=== PATIENT | female | born 1990 | race Hispanic/Latino ===

== ENCOUNTER 2021-08-26 15:00 | Inpatient (IN) | payer MEDICAID, OTHER ==
[~2021-08-26] VITALS: Ht 160 cm; Wt 70.3 kg
[2021-08-26] MEDS: OXYTOCIN-LR 20 UNITS/1000 ML 1,000 ML IV SCH ×2 (15:24→16:30)
[2021-08-26] MEDS ORDERED: BENZOCAINE/LANOLIN/ALOE VERA 60 ML AEROSOL TP PRN (16:00)
[2021-08-26] MEDS ORDERED: DIPH,PERTUSS(ACELL),TET VAC/PF 0.5 ML VIAL IM PRN (16:00)
[2021-08-26] MEDS ORDERED: ACETAMINOPHEN 325 MG TAB PO PRN (16:00)
[2021-08-26] MEDS ORDERED: MEASLES/MUMPS/RUBELLA VACCINE, LIVE 0.5 ML/VIAL SQ PRN (16:00)
[2021-08-26] MEDS ORDERED: LACTATED RINGERS 1000ML 1,000 ML IV PRN (16:00)
[2021-08-26] MEDS ORDERED: WITCH HAZEL 1 PAD TP PRN (16:00)
[2021-08-26] MEDS ORDERED: ACETAMINOPHEN WITH CODEINE 1 TAB TAB PO PRN (16:00)
[2021-08-26] MEDS ORDERED: LANOLIN 30GM OINTMENT TP PRN (16:00)
[2021-08-26 16:06] LABS: HEMATOCRIT 26.3 % (36-48); MEAN CORPUSCULAR HEMOGLOBIN 19.1 pg (27.0-33.0); MEAN CORPUSCULAR HGB CONC 28.5 g/dL (32.0-36.0); MEAN CORPUSCULAR VOLUME 67.1 fL (79-99); PLATELET COUNT (AUTO) 279 K/uL (130-400); RED BLOOD CELL COUNT(AUTO) 3.92 MIL/uL (4.00-5.50); RED CELL DISTRIBUTION WIDTH 17.2 % (11.0-15.5); WHITE BLOOD COUNT (AUTO) 12.6 K/uL (4.8-10.8)
[2021-08-26] MEDS: IBUPROFEN 600 MG TABLET PO PRN (16:13)
[2021-08-26 19:00] VITALS: BP 115/70
[2021-08-26 20:00] VITALS: BP 117/70
[2021-08-26 20:16] VITALS: BP 113/65
[2021-08-26] MEDS ORDERED: FERRALET PO (20:38)
[2021-08-26] MEDS ORDERED: PREN1TAB80 PO (20:38)
[2021-08-26] MEDS: DOCUSATE SODIUM 100 MG CAP PO SCH (21:50)
[2021-08-26 23:15] VITALS: BP 113/69
[2021-08-27 03:12] LABS: AMPHET/METH SCREEN,URINE NEGATIVE (NEGATIVE); BARBITURATE SCREEN, URINE NEGATIVE (NEGATIVE); BENZODIAZEPINES SCREEN,URINE NEGATIVE (NEGATIVE); CANNABINOID SCREEN,URINE NEGATIVE (NEGATIVE); COCAINE SCREEN,URINE NEGATIVE (NEGATIVE); OPIATE SCREEN,URINE POSITIVE (NEGATIVE); PHENCYCLIDINE SCREEN,URINE NEGATIVE (NEGATIVE)
[2021-08-27 04:02] VITALS: BP 118/71
[2021-08-27 07:02] LABS: MEAN CORPUSCULAR HEMOGLOBIN 19.5 pg (27.0-33.0); MEAN CORPUSCULAR HGB CONC 29.2 g/dL (32.0-36.0); MEAN CORPUSCULAR VOLUME 66.8 fL (79-99); RED BLOOD CELL COUNT(AUTO) 3.74 MIL/uL (4.00-5.50); RED CELL DISTRIBUTION WIDTH 17.4 % (11.0-15.5); WHITE BLOOD COUNT (AUTO) 12.8 K/uL (4.8-10.8)
[2021-08-27 07:27] VITALS: BP 110/75
[2021-08-27] MEDS: IBUPROFEN 600 MG TABLET PO PRN (09:54)
[2021-08-27] MEDS: DOCUSATE SODIUM 100 MG CAP PO SCH (09:54)
[2021-08-27 11:15] VITALS: BP 91/59
== END 2021-08-27 16:30 | disposition home or self-care (01) | DRG 560 ==
LOC: EDH 15:00 → INTOOBSV 15:01 → OBSVTOIN 15:01 → LDH 15:01 → UNDOADMOB 15:19 → NYH 20:10 → LDH 20:51 → WSH 21:15
PROVIDERS: ADMIT Obstetrics & Gynecology; ATTEND Obstetrics & Gynecology
PROC: 10E0XZZ Delivery of Products of Conception, External Approach (ICD-10-PCS; principal; 2021-08-26)
DX: O69.1XX0 Labor and delivery complicated by cord around neck, with compression, not applicable or unspecified (principal); Z37.0 Single live birth; O99.02 Anemia complicating childbirth; Z3A.37 37 weeks gestation of pregnancy
CPT/HCPCS: 36415; 80305; 85027; 86592; 86850; 86900; 86901; 87340; G0378; J2590; J7120